=== PATIENT | male | born 1995 ===

== ENCOUNTER 2017-12-26 12:04 | Emergency (ER) | payer OTHER ==
[2017-12-26] MEDS ORDERED: NS(*) 0.9% 1000 ML BAG 1,000 ML IV ONE ×2 (12:07→12:35)
[2017-12-26] MEDS ORDERED: ONDANSETRON 4 MG/2 ML VIAL IVP ONE (12:10)
--- NOTE | 2017-12-26 12:10 | ER Report ---
History and Physical Time Seen By MD: 12:08 HPI/ROS CHIEF COMPLAINT: Postop bleeding HISTORY OF PRESENT ILLNESS: Patient is a 22-year-old male who is postop day #3 from a tonsillectomy that was performed by Dr[facility]h [facility] [place]. Patient states he had an episode where he coughed and then began of vomiting blood. He states that he vomited approximately a "pint of blood" the bleeding seems to have stopped now at this time. The patient states he does not feel as if he swallowing blood any more. The patient does feel lightheaded and dizzy. REVIEW OF SYSTEMS: Constitutional: No fever, no chills. Dizziness ENT: Sore throat. Bleeding from surgical site of the tonsils Cardiovascular: No chest pain, no palpitations. Respiratory: No cough, no shortness of breath. Gastrointestinal: No abdominal pain, nausea Allergies: Coded Allergies: No Known Drug Allergies (Unverified , 12/26/17) Home Meds Reported Medications Ibuprofen (IBUPROFEN) 200 Mg Capsule, 1 CAP PO Q6H, CAPSULE 12/26/17 Hydrocodone/Acetaminophen 10/300 MG/15 ML (Lortab 10 mg-300 mg/15 ml Elxr) 473 Ml Solution 12/26/17 Past Medical/Surgical History Tonsillectomy patient currently postop day #3 Constitutional Vital Sign - Last 24 Hours 12/26/17 12/26/17 12/26/17 12/26/17 12:04 12:10 12:12 12:14 Pulse ??? 78 Resp 28 B/P (MAP) 87/43 (58) 116/52 (73) 112/55 (74) Pulse Ox 94 12/26/17 12/26/17 12/26/17 12/26/17 12:15 12:20 12:20 12:25 Temp 98.0 Pulse 95 Resp 16 B/P (MAP) 123/62 (82) 87/43 122/73 (89) 111/65 (80) Pulse Ox 92 O2 Delivery Room Air 12/26/17 12/26/17 12/26/17 12/26/17 12:30 12:34 12:35 12:40 Pulse 87 80 Resp 20 30 B/P (MAP) 108/50 (69) 110/57 (74) 100/51 (67) Pulse Ox 89 91 12/26/17 12/26/17 12/26/17 12/26/17 12:45 12:50 12:55 13:00 Pulse 84 81 Resp 11 24 B/P (MAP) 95/47 (63) 93/50 (64) 85/56 (66) 96/47 (63) Pulse Ox 93 93 12/26/17 12/26/17 12/26/17 12/26/17 13:05 13:10 13:15 13:20 Pulse 80 75 Resp 25 21 B/P (MAP) 89/48 (62) 90/43 (59) 95/55 (68) 104/54 (71) Pulse Ox 95 96 12/26/17 12/26/17 12/26/17 13:25 13:30 13:42 Temp 98.1 Pulse 81 Resp 25 B/P (MAP) 108/56 (73) 103/65 (78) Pulse Ox 96 Physical Exam General Appearance: Alert, no distress. Pale in appearance Eyes: Pupils equal and round no pallor or injection. ENT, Mouth: Ears: Tympanic membranes are normal. Nose: No bleeding. Mouth: Slow ooze from right tonsillar crypt area Throat: No palatal petechiae, uvula is midline Musculoskeletal: Neck is supple non tender, no adenopathy. Skin: Cool, clammy no rashes Medical Decision Making Data Points Result Diagram: 12/26/17 1200 12/26/17 1200 Laboratory Hematology Test 12/26/17 12:00 Red Blood Count 5.51 M/uL (4.00-5.60) Mean Corpuscular Volume 89.9 fL (80.0-96.0) Mean Corpuscular Hemoglobin 31.9 pg (26.0-33.0) Mean Corpuscular Hemoglobin Concent 35.5 g/dL (32.0-36.0) Red Cell Distribution Width 12.7 % (11.5-14.5) Mean Platelet Volume fL (7.2-11.1) Neutrophils (%) (Auto) 72.2 % (39.4-72.5) Lymphocytes (%) (Auto) 19.9 % (17.6-49.6) Monocytes (%) (Auto) 6.6 % (4.1-12.4) Eosinophils (%) (Auto) 0.9 % (0.4-6.7) Basophils (%) (Auto) 0.4 % (0.3-1.4) Nucleated RBC Relative Count (auto) 0.2 /100WBC Neutrophils # (Auto) 14.1 K/uL (2.0-7.4) Lymphocytes # (Auto) 3.9 K/uL (1.3-3.6) Monocytes # (Auto) 1.3 K/uL (0.3-1.0) Eosinophils # (Auto) 0.2 K/uL (0.0-0.5) Basophils # (Auto) 0.1 K/uL (0.0-0.1) Nucleated RBC Absolute Count (auto) 0.03 K/uL Peripheral Blood Smear Yes Y/N Sodium Level 140 mmol/L (137-145) Potassium Level 3.6 mmol/L (3.5-5.0) Chloride Level 102 mmol/L (98-107) Carbon Dioxide Level 25 mmol/L (22-30) Blood Urea Nitrogen 6 mg/dl (9-21) Creatinine 0.90 mg/dl (0.66-1.25) Glomerular Filtration Rate Calc > 60.0 Random Glucose 113 mg/dl (75-110) Calcium Level 9.9 mg/dl (8.4-10.2) Total Bilirubin 1.3 mg/dl (0.2-1.3) Aspartate Amino Transf (AST/SGOT) 23 U/L (0-35) Alanine Aminotransferase (ALT/SGPT) 27 U/L (0-56) Alkaline Phosphatase 75 U/L (0-126) Total Protein 7.0 gm/dl (6.3-8.2) Albumin 3.9 g/dl (3.5-5.0) Chemistry Test 12/26/17 12:00 White Blood Count 19.5 k/uL (4.5-11.0) Red Blood Count 5.51 M/uL (4.00-5.60) Hemoglobin 17.6 g/dL (14.0-18.0) Hematocrit 49.5 % (42.0-52.0) Mean Corpuscular Volume 89.9 fL (80.0-96.0) Mean Corpuscular Hemoglobin 31.9 pg (26.0-33.0) Mean Corpuscular Hemoglobin Concent 35.5 g/dL (32.0-36.0) Red Cell Distribution Width 12.7 % (11.5-14.5) Platelet Count 297 K/uL (150-450) Mean Platelet Volume fL (7.2-11.1) Neutrophils (%) (Auto) 72.2 % (39.4-72.5) Lymphocytes (%) (Auto) 19.9 % (17.6-49.6) Monocytes (%) (Auto) 6.6 % (4.1-12.4) Eosinophils (%) (Auto) 0.9 % (0.4-6.7) Basophils (%) (Auto) 0.4 % (0.3-1.4) Nucleated RBC Relative Count (auto) 0.2 /100WBC Neutrophils # (Auto) 14.1 K/uL (2.0-7.4) Lymphocytes # (Auto) 3.9 K/uL (1.3-3.6) Monocytes # (Auto) 1.3 K/uL (0.3-1.0) Eosinophils # (Auto) 0.2 K/uL (0.0-0.5) Basophils # (Auto) 0.1 K/uL (0.0-0.1) Nucleated RBC Absolute Count (auto) 0.03 K/uL Peripheral Blood Smear Yes Y/N Glomerular Filtration Rate Calc > 60.0 Calcium Level 9.9 mg/dl (8.4-10.2) Total Bilirubin 1.3 mg/dl (0.2-1.3) Aspartate Amino Transf (AST/SGOT) 23 U/L (0-35) Alanine Aminotransferase (ALT/SGPT) 27 U/L (0-56) Alkaline Phosphatase 75 U/L (0-126) Total Protein 7.0 gm/dl (6.3-8.2) Albumin 3.9 g/dl (3.5-5.0) ED Course/Re-evaluation ED Course 12/26/2017 12:26:33 pm I did attempt to call Dr. Suresh Simms's office [phone]. The os is closed I did attempt to reach the answering service was on hold for approximately 10 minutes without response. I will try again shortly but will also call [facility] to see if they have on-call ear nose and throat. 12/26/2017 12:42:15 pm patient's blood pressure has improved it is now 100/51. I was able to get in touch with the answering service and they are now paging Dr. Simms. 12/26/2017 1:03:04 pm I did speak with Dr. Simms and explained patient's currently hemodynamically stable and no active bleeding is noted at this time. He was instructed to give the patient 10 mg of Decadron and observe the patient for an additional hour in the emergency department and if no rebleeding occurs the patient looks well to page him directly at [phone] for disposition. 12/26/2017 2:12:[address] Simms directly at [phone] for his request. Patient has remained asymptomatic no further bleeding episodes and is hemodynamically stable and does feel comfortable going home with parents. Dr. Simms agrees the patient can be discharged home with his family in follow-up next week as scheduled Decision to Disposition Date: Dec 26, 2017 Decision to Disposition Time: 14:13 Depart Departure Latest Vital Signs Vital Signs Date Time Temp Pulse Resp B/P (MAP) Pulse Ox O2 Delivery O2 Flow Rate FiO2 12/26/17 13:42 98.1 12/26/17 13:30 81 25 103/65 (78) 96 12/26/17 12:20 Room Air Impression: Primary Impression: Post-op bleeding Condition: Improved Disposition: HOME OR SELF-CARE Patient Instructions: Tonsillectomy (DC) Additional Instructions: Follow-up with Dr. Simms as directed Problem Qualifiers Primary Impression: Post-op bleeding Surgical complication system/body Area: digestive system Procedure type: digestive system Qualified Codes: K91.840 - Postprocedural hemorrhage of a digestive system organ or structure following a digestive system procedure CHARLES YA MD Dec 26, 2017 12:10
[2017-12-26] MEDS ORDERED: ONDANSETRON 4 MG/2 ML VIAL ONE (12:16)
[2017-12-26] MEDS ORDERED: HYDR473S9 (12:25)
[2017-12-26] MEDS ORDERED: IBUP200C71 PO (12:25)
[2017-12-26] MEDS ORDERED: EMS NS 0.9%(*) 1000 ML BAG 1,000 ML IV ONE (12:35)
[2017-12-26] MEDS ORDERED: DEXAMETHASONE SOD PHOS 10MG/ML IVP ONE (13:05)
[2017-12-26 13:10] LABS: PLATELET COUNT, AUTOMATED 297 K/uL (150-450)
[2017-12-26 14:15] VITALS: BP 107/59
== END 2017-12-26 14:30 | disposition home or self-care (01) ==
LOC: ER 12:11
DX: K91.840 Postprocedural hemorrhage of a digestive system organ or structure following a digestive system procedure (principal)
CPT/HCPCS: 85025; 86850; 86900; 86901; 96361; 96374; 96375; 99284; J1100; J2405; J7030; 82040; 82247; 82310; 82374; 82435; 82565; 82947; 84075; 84132; 84155; 84295; 84450; 84460; 84520

== ENCOUNTER → 2017-12-26 | Outpatient (CLI) | payer OTHER ==
[~2017-12-26] MED LIST: HYDR473S9; IBUP200C71 PO
== END ==
LOC: AMB 11:49
PROVIDERS: ATTEND Nurse Practitioner
DX: R04.2 Hemoptysis (principal); R53.1 Weakness; R42 Dizziness and giddiness
CPT/HCPCS: A0425; A0427